=== PATIENT | male | born 1955 | race Caucasian/White ===

== ENCOUNTER 2017-04-18 18:30 | Inpatient (IN) | payer MEDICAID ==
[2017-04-18] MEDS ORDERED: NS 1,000 ML IV ONE ×4 (18:44→19:28)
--- NOTE | 2017-04-18 18:47 | EDPHY ---
H & P Time Seen by Provider: 04/18/17 18:39 HPI/ROS: CHIEF COMPLAINT: High blood sugar and short of breath HISTORY OF PRESENT ILLNESS: Patient is had insulin-dependent diabetes for 30 years. He got out of [facility] 4 days ago and has not had any insulin since. He was living in [facility] in [place] before that. He presents the emergency department with shortness of breath and elevated blood sugar. Associated with nausea and vomiting and some epigastric discomfort and reflux. No chest pain. Not coughing. No fever or chills. Feels very thirsty and dehydrated. REVIEW OF SYSTEMS: Eye: no change in vision ENT: no sore throat Cardiac: no chest pain or syncope Pulmonary: HPI Abdomen: No abdominal pain or diarrhea Musculoskeletal: no back pain Skin: no rash Neuro: no headache Constitutional: no fever : no urinary symptoms A comprehensive 10 point review of systems is otherwise negative aside from elements mentioned in the history of present illness. PAST MEDICAL HISTORY: Insulin-dependent diabetes and appendectomy Social history: Smoker, intermittent alcohol, recently in [facility]. General Appearance: Alert and conversant, cooperative. Eyes: No scleral icterus. ENT, Mouth: Very dry mucous membranes Respiratory: Tachypneic but no rales or rhonchi. Cardiovascular: Regular rate and rhythm. Tachycardic without murmur. Gastrointestinal: Abdomen is soft and non tender. Neurological: Alert and oriented x3. Normally conversant. Face symmetric, normal movement and sensation in all extremities. Skin: Warm and dry, no rashes. Musculoskeletal: No peripheral edema and no joint swelling. Psychiatric: Not agitated. Emergency Department course/MDM: Arrives by EMS with pre-hospital glucose greater than 600. Clinically appears highly likely to be diabetic ketoacidosis. 1851: Sodium 125, glucose greater than 700, potassium 5.3. Serum potassium 6.1. Insulin for DKA protocol started and ordered with 3 L IV normal saline. 10 units IV bolus, 10units/hr drip. 1950: I-STAT potassium is 4.3, continue IV fluids. Sodium noted, likely pseudo hyponatremia with severely elevated glucose. Constitutional: Initial Vital Signs Temperature (C) 36.3 C 04/18/17 18:45 Heart Rate 115 H 04/18/17 18:45 Respiratory Rate 24 H 04/18/17 18:45 Blood Pressure 198/88 H 04/18/17 18:45 O2 Sat (%) 95 04/18/17 18:45 O2 Delivery Mode Room Air Allergies/Adverse Reactions: No Known Allergies Allergy (Unverified 04/18/17 18:45) Home Medications: Medication Instructions Recorded NK [No Known Home Meds] 04/18/17 Medical Decision Making - Diagnostics EKG Interpretation: 12-lead EKG interpreted by me; official reading is in trace master. My interpretation is sinus tachycardia with borderline prolonged QT. Imaging Results: Imaging Impressions Chest X-Ray 04/18/17 18:45 Impression: 1. No active cardiopulmonary disease seen. 2. Scarring suspected right middle lobe. Chest x-ray negative. Imaging: I viewed and interpreted images myself Differential Diagnosis: Differential diagnosis considered for shortness of breath including but not limited to pulmonary infectious process, COPD, asthma, pulmonary embolus and congestive heart failure. Consult/Admit Bed Type: [place] [id number] Critical Care Time: Critical care time spent by me, Dr. Castorena, exclusively with the care of this patient was 35 minutes, exclusive of PA or [employer] time and exclusive of separate procedures. The organ system at risk was metabolic and I ordered normal saline , IV insulin bolus and drip, antiemetics, discussion with hospitalist, review of multiple diagnostic studies; to stabilize the patient and prevent worsening of the patient's condition. - Data Points Laboratory Results: Laboratory Results 04/18/17 18:30 04/18/17 18:30 04/18/17 04/18/17 04/18/17 19:00 18:41 18:40 WBC RBC Hgb POC Hgb 18.0 gm/dL H gm/dL (13.7-17.5) Hct POC Hct 53 % H % (40-51) MCV MCH MCHC RDW Plt Count MPV Neut % (Auto) Lymph % (Auto) [place] % (Auto) Eos % (Auto) Baso % (Auto) Nucleat RBC Rel Count Absolute Neuts (auto) Absolute Lymphs (auto) Absolute Monos (auto) Absolute Eos (auto) Absolute Basos (auto) Absolute Nucleated RBC Immature Gran % Immature Gran # VBG pH 7.15 L* (7.31-7.42) POC Sodium 125 mEq/L L mEq/L (134-144) Sodium POC Potassium 5.3 mEq/L H mEq/L (3.3-5.0) Potassium POC Chloride 93 mEq/L L mEq/L (97-110) Chloride Carbon Dioxide Anion Gap POC BUN 63 mg/dL H mg/dL (7-23) BUN Creatinine POC Creatinine 0.9 mg/dL mg/dL (0.7-1.3) Estimated GFR Glucose POC Glucose Pending Calcium Phosphorus Magnesium Troponin I Beta-Hydroxybutyrate Urine Color PALE YELLOW Urine Appearance CLEAR Urine pH 5.0 (5.0-7.5) Ur Specific [place] 1.023 (1.002-1.030) Urine Protein NEGATIVE (NEGATIVE) Urine Ketones 2+ H (NEGATIVE) Urine Blood 3+ H (NEGATIVE) Urine Nitrate NEGATIVE (NEGATIVE) Urine Bilirubin NEGATIVE (NEGATIVE) Urine Urobilinogen NEGATIVE EU EU (0.2-1.0) Ur Leukocyte Esterase NEGATIVE (NEGATIVE) Urine RBC 1-3 /hpf /hpf (0-3) Urine WBC 1-3 /hpf /hpf (0-3) Ur Epithelial Cells NONE SEEN /lpf /lpf (NONE-1+) Urine Mucus TRACE /lpf /lpf (NONE-1+) Urine Glucose 3+ H (NEGATIVE) 04/18/17 04/18/17 18:30 18:30 WBC 23.72 10^3/uL H 10^3/uL (3.80-9.50) RBC 5.42 10^6/uL 10^6/uL (4.40-6.38) Hgb 17.2 g/dL g/dL (13.7-17.5) POC Hgb Hct 49.6 % % (40.0-51.0) POC Hct MCV 91.5 fL fL (81.5-99.8) MCH 31.7 pg pg (27.9-34.1) MCHC 34.7 g/dL g/dL (32.4-36.7) RDW 12.5 % % (11.5-15.2) Plt Count 294 10^3/uL 10^3/uL (150-400) MPV 11.0 fL fL (8.7-11.7) Neut % (Auto) 87.6 % H % (39.3-74.2) Lymph % (Auto) 4.1 % L % (15.0-45.0) [place] % (Auto) 7.0 % % (4.5-13.0) Eos % (Auto) 0.0 % L % (0.6-7.6) Baso % (Auto) 0.2 % L % (0.3-1.7) Nucleat RBC Rel Count 0.0 % % (0.0-0.2) Absolute Neuts (auto) 20.78 10^3/uL H 10^3/uL (1.70-6.50) Absolute Lymphs (auto) 0.97 10^3/uL L 10^3/uL (1.00-3.00) Absolute Monos (auto) 1.65 10^3/uL H 10^3/uL (0.30-0.80) Absolute Eos (auto) 0.00 10^3/uL L 10^3/uL (0.03-0.40) Absolute Basos (auto) 0.05 10^3/uL 10^3/uL (0.02-0.10) Absolute Nucleated RBC 0.00 10^3/uL 10^3/uL (0-0.01) Immature Gran % 1.1 % % (0.0-1.1) Immature Gran # 0.27 10^3/uL H 10^3/uL (0.00-0.10) VBG pH POC Sodium Sodium 124 mEq/L L mEq/L (134-144) POC Potassium Potassium 6.1 mEq/L H mEq/L (3.5-5.2) POC Chloride Chloride 90 mEq/L L mEq/L (97-110) Carbon Dioxide < 5 mEq/l L* mEq/l (22-31) Anion Gap TNP POC BUN BUN 53 mg/dL H mg/dL (7-23) Creatinine 1.4 mg/dL H mg/dL (0.7-1.3) POC Creatinine Estimated GFR 52 Glucose 740 mg/dL H* mg/dL (70-100) POC Glucose Calcium 9.2 mg/dL mg/dL (8.5-10.4) Phosphorus 5.8 mg/dL H mg/dL (2.5-4.5) Magnesium 2.6 mg/dL H mg/dL (1.6-2.3) Troponin I < 0.012 ng/mL ng/mL (0-0.034) Beta-Hydroxybutyrate Pending Urine Color Urine Appearance Urine pH Ur Specific [place] Urine Protein Urine Ketones Urine Blood Urine Nitrate Urine Bilirubin Urine Urobilinogen Ur Leukocyte Esterase Urine RBC Urine WBC Ur Epithelial Cells Urine Mucus Urine Glucose Medications Given: Discontinued Medications Sodium Chloride (Ns) 1,000 mls @ 0 mls/hr IV ONCE ONE; Wide Open PRN Reason: Protocol Stop: 04/18/17 18:45 Last Admin: 04/18/17 18:52 Dose: 1,000 mls Sodium Chloride (Ns) 1,000 mls @ 0 mls/hr IV ONCE ONE; Wide Open PRN Reason: Protocol Stop: 04/18/17 18:45 Last Admin: 04/18/17 19:03 Dose: 1,000 mls Sodium Chloride (Ns) 1,000 mls @ 0 mls/hr IV ONCE ONE; Wide Open PRN Reason: Protocol Stop: 04/18/17 18:45 Last Admin: 04/18/17 19:59 Dose: 1,000 mls Sodium Chloride (Ns) 1,000 mls @ 0 mls/hr IV EDNOW ONE; Wide Open PRN Reason: Protocol Stop: 04/18/17 19:29 Last Admin: 04/18/17 19:59 Dose: 1,000 mls Insulin Human Regular (Humulin R) 10 unit IVP EDNOW ONE Stop: 04/18/17 18:51 Last Admin: 04/18/17 19:19 Dose: 10 unit Metoclopramide HCl (Reglan Injection) 10 mg IVP EDNOW ONE Stop: 04/18/17 19:03 Last Admin: 04/18/17 19:19 Dose: 10 mg Point of Care Test Results: 04/18/17 18:41 POC Sodium 125 L POC Potassium 5.3 H POC Chloride 93 L POC BUN 63 H POC Creatinine 0.9 Departure - [facility] Clinical Impression: DKA (diabetic ketoacidoses) Qualifiers: Diabetes mellitus type: type 1 Diabetes mellitus complication detail: without coma Qualified Code(s): E10.10 - Type 1 diabetes mellitus with ketoacidosis without coma Condition: Serious
[2017-04-18 18:49] LABS: % IMMATURE GRANULYOCYTES 1.1 % (0.0-1.1); ABSOLUTE IMMATURE GRANULOCYTES 0.27 10^3/uL (0.00-0.10); ADD DIFF? NO; ADD MORPH? NO; ADD SCAN? NO; ATYPICAL LYMPHOCYTE FLAG 0 (0-99); FRAGMENT RBC FLAG 0 (0-99); HEMATOCRIT 49.6 % (40.0-51.0); HEMOGLOBIN 17.2 g/dL (13.7-17.5); LEFT SHIFT FLG 20 (0-99); LIPEMIA HEMOLYSIS FLAG 90 (0-99); MEAN CELL HEMOGLOBIN 31.7 pg (27.9-34.1); MEAN CELL HEMOGLOBIN CONCENTR. 34.7 g/dL (32.4-36.7); MEAN CELL VOLUME 91.5 fL (81.5-99.8); PLATELET CLUMPS FLAG 10 (0-99); PLATELET COUNT 294 10^3/uL (150-400); RED BLOOD CELL COUNT 5.42 10^6/uL (4.40-6.38); RED CELL DISTRIBUTION WIDTH 12.5 % (11.5-15.2)
[2017-04-18] MEDS ORDERED: INSULIN REGULAR HUMAN 100 UNIT, COSIGN. REQUIRED 1 EA in NS 100 ML IV ONE (18:50)
[2017-04-18] MEDS ORDERED: INSULIN REGULAR HUMAN 100 UNIT/ML IVP ONE (18:50)
--- NOTE | 2017-04-18 18:55 | CPEKG ---
Heart Rate: 116 RR Interval: 517 P-R Interval: 148 QRSD Interval: 90 QT Interval: 344 QTC Interval: 478 P [place]: 71 QRS [place]: 42 T Wave [place]: 36 EKG Severity - BORDERLINE ECG - EKG Impression: SINUS TACHYCARDIA EKG Impression: BORDERLINE PROLONGED QT INTERVAL Electronically Signed By: Hung Castorena 18-Apr-2017 19:03:45
[2017-04-18] MEDS ORDERED: METOCLOPRAMIDE 10 MG/2 ML VIAL IVP ONE (19:02)
[2017-04-18 19:03] LABS: CALCIUM 9.2 mg/dL (8.5-10.4); CHLORIDE 90 mEq/L (97-110); CREATININE 1.4 mg/dL (0.7-1.3); GLOMERULAR FILTRATION RATE 52; MAGNESIUM 2.6 mg/dL (1.6-2.3); POTASSIUM 6.1 mEq/L (3.5-5.2); SODIUM 124 mEq/L (134-144)
[2017-04-18 19:11] LABS: CARBON DIOXIDE < 5 mEq/l (22-31)
[2017-04-18 19:13] LABS: COLOR PALE YELLOW; LEUKOCYTE ESTERASE,URINE NEGATIVE (NEGATIVE); NITRITE,URINE NEGATIVE (NEGATIVE)
[2017-04-18 19:15] LABS: TROPONIN I < 0.012 ng/mL (0-0.034)
[2017-04-18 19:17] LABS: GLUCOSE 740 mg/dL (70-100)
[2017-04-18 19:23] LABS: MUCUS TRACE /lpf (NONE-1+)
[2017-04-18 20:53] LABS: GLUCOSE 542 mg/dL (70-100)
[2017-04-18] MEDS ORDERED: ACETAMINOPHEN 325 MG TAB PO PRN (20:59)
[2017-04-18] MEDS ORDERED: ONDANSETRON DISINTEGRATING 4 MG TAB PO PRN (20:59)
[2017-04-18] MEDS ORDERED: ONDANSETRON 4 MG/2 ML VIAL IVP PRN (20:59)
[2017-04-18] MEDS ORDERED: hydrALAZINE 20 MG/ML VIAL IVP PRN (21:00)
[2017-04-18] MEDS ORDERED: INSULIN REGULAR HUMAN 100 UNIT/ML IVP PRN (21:04)
[2017-04-18] MEDS ORDERED: D50W 25 GM/50 ML SYR IVP PRN (21:04)
[2017-04-18] MEDS ORDERED: NS BOLUS 1000 ML (Wide open) IV ONE (21:30)
[2017-04-18 21:32] LABS: BASE EXCESS -21.9 mEq/L (-2.5-2.5); BICARBONATE 6 mEq/L (22-26); MEASURED OXYGEN SATURATION 96 % (92-95); PO2 99 mmHg (65-75)
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
[2017-04-18 21:34] LABS: TCO2 6 mEq/L (23-27)
[2017-04-18 21:38] LABS: PCO2 15 mmHg (34-38)
[2017-04-18] MEDS ORDERED: NS W/ 20 KCl/L 1,000 ML IV ONE (22:00)
[2017-04-18] MEDS ORDERED: PROTOCOL POTASSIUM 1 DOSE MISC PRN (22:27)
[2017-04-18] MEDS ORDERED: PROTOCOL MAGNESIUM 1 DOSE IV PRN (22:27)
[2017-04-18] MEDS: PANTOPRAZOLE SODIUM 40 MG TAB PO SCH (22:49)
[2017-04-18] MEDS: D5W 1/2 NS 1,000 ML IV PRN (23:56)
[2017-04-18] MEDS: INSULIN REGULAR HUMAN 100 UNIT in NS 100 ML IV SCH (23:58)
[2017-04-19] MEDS ORDERED: NS W/ 20 KCl/L 1,000 ML IV ONE
[2017-04-19 00:23] LABS: ANION GAP 15 mEq/L (8-16); CALCIUM 7.5 mg/dL (8.5-10.4); CARBON DIOXIDE 11 mEq/l (22-31); CHLORIDE 113 mEq/L (97-110); CREATININE 0.8 mg/dL (0.7-1.3); GLOMERULAR FILTRATION RATE > 60; GLUCOSE 220 mg/dL (70-100); POTASSIUM 4.6 mEq/L (3.5-5.2); SODIUM 139 mEq/L (134-144)
[2017-04-19] MEDS ORDERED: NS 1,000 ML IV ONE (04:00)
[2017-04-19 05:07] LABS: ANION GAP 8 mEq/L (8-16); CALCIUM 7.4 mg/dL (8.5-10.4); CARBON DIOXIDE 16 mEq/l (22-31); CHLORIDE 116 mEq/L (97-110); CHOLESTEROL 97 mg/dL (140-220); CHOLESTEROL/HDL RATIO 4.62 RATIO (1.00-4.97); CREATININE 0.7 mg/dL (0.7-1.3); GLOMERULAR FILTRATION RATE > 60; GLUCOSE 52 mg/dL (70-100); HIGH DENSITY LIPOPROTEIN 21 mg/dL (40-65); LOW DENSITY LIPOPROTEIN 61 mg/dL (80-100); NON-HIGH DENSITY LIPOPROTEIN 76 mg/dL (90-129); POTASSIUM 3.4 mEq/L (3.5-5.2); SODIUM 140 mEq/L (134-144); TRIGLYCERIDE 79 mg/dL (40-150); VERY LOW DENSITY LIPOPROTEINS 15 mg/dL (8-25)
[2017-04-19] MEDS: D5W 1/2 NS 1,000 ML IV PRN (05:21)
[2017-04-19] MEDS: POTASSIUM Cl (KCl) 100 ML IV SCH ×6 (05:24→22:32)
[2017-04-19] MEDS: INSULIN REGULAR HUMAN 100 UNIT in NS 100 ML IV SCH (06:18)
[2017-04-19] MEDS ORDERED: 1/2 NS 1,000 ML IV SCH (08:00)
[2017-04-19 08:32] LABS: ANION GAP 8 mEq/L (8-16); CALCIUM 7.2 mg/dL (8.5-10.4); CARBON DIOXIDE 16 mEq/l (22-31); CHLORIDE 115 mEq/L (97-110); CREATININE 0.6 mg/dL (0.7-1.3); GLOMERULAR FILTRATION RATE > 60; GLUCOSE 75 mg/dL (70-100); SODIUM 139 mEq/L (134-144)
[2017-04-19] MEDS: PANTOPRAZOLE SODIUM 40 MG TAB PO SCH (09:53)
--- NOTE | 2017-04-19 11:13 | HOSPPROG ---
Hospitalist Progress Note Assessment/Plan: #DKA: gap closed. HCO3 still low. Cont insulin gtt, D5NS, transition to glargine if improved this afternoon #Atypical cough: productive cough. Check CXR, sputum culture #Social situation: recently out of detention, currently homeless. Schedule appt at [facility] #Leukocytosis: dehydration vs. PNA. Check CXR. Treat for CAP empirically, check procalcitonin. #Metabolic acidosis: due to DKA, dehydration. IVFs. Serial BMP #GERD: PPI #Diet: diabetic #DVT: Lovenox Subjective: cough with brown sputum. No fever, chills or weight loss Objective: Vital Signs Temp Pulse Resp BP Pulse Ox 37.2 C 84 25 H 134/64 H 95 04/19/17 04:00 04/19/17 10:00 04/19/17 10:00 04/19/17 10:00 04/19/17 10:00 Laboratory Results 04/19/17 08:00 04/18/17 04/19/17 04/20/17 05:59 05:59 05:59 Intake Total 6690 Output Total 1670 Balance 5020 - Physical Exam Constitutional: no apparent distress Eyes: PERRL Ears, Nose, Mouth, Throat: moist mucous membranes, hearing normal Cardiovascular: regular rate and rhythym, no murmur, rub, or gallop Respiratory: no respiratory distress, no rales or rhonchi, other (brown sputum) Gastrointestinal: normoactive bowel sounds, soft, non-tender abdomen Genitourinary: no bladder fullness Skin: warm Musculoskeletal: full muscle strength, no muscle tenderness Neurologic: AAOx3, CN II-XII Intact Psychiatric: interacting appropriately ICD10 Worksheet Patient Problems: Problems Problem Status Onset DKA (diabetic ketoacidoses) Acute
[2017-04-19 12:21] LABS: ANION GAP 8 mEq/L (8-16); CARBON DIOXIDE 15 mEq/l (22-31); CHLORIDE 115 mEq/L (97-110); CREATININE 0.6 mg/dL (0.7-1.3); GLOMERULAR FILTRATION RATE > 60; GLUCOSE 157 mg/dL (70-100); POTASSIUM 3.8 mEq/L (3.5-5.2); SODIUM 138 mEq/L (134-144)
[2017-04-19] MEDS: ENOXAPARIN 40 MG/0.4 ML SYR SC SCH (12:38)
[2017-04-19] MEDS: D5W 1/2 NS 1,000 ML IV SCH (15:30)
[2017-04-19 16:41] LABS: HEMATOCRIT 37.4 % (40.0-51.0); HEMOGLOBIN 13.6 g/dL (13.7-17.5); MEAN CELL HEMOGLOBIN 32.1 pg (27.9-34.1); MEAN CELL HEMOGLOBIN CONCENTR. 36.4 g/dL (32.4-36.7); MEAN CELL VOLUME 88.2 fL (81.5-99.8); RED BLOOD CELL COUNT 4.24 10^6/uL (4.40-6.38); RED CELL DISTRIBUTION WIDTH 12.5 % (11.5-15.2)
[2017-04-19 17:02] LABS: ALANINE AMINOTRANSFERASE 83 IU/L (21-72); ALBUMIN 2.4 g/dL (3.5-5.0); ALKALINE PHOSPHATASE 69 IU/L (38-126); ANION GAP 8 mEq/L (8-16); ASPARTATE AMINOTRANSFERASE 56 IU/L (17-59); BILIRUBIN,TOTAL 0.9 mg/dL (0.1-1.4); BILIRUBIN-CONJUGATED 0.4 mg/dL (0.0-0.5); BILIRUBIN-UNCONJUGATED 0.5 mg/dL (0.0-1.1); CALCIUM 7.2 mg/dL (8.5-10.4); CARBON DIOXIDE 14 mEq/l (22-31); CHLORIDE 113 mEq/L (97-110); CREATININE 0.6 mg/dL (0.7-1.3); GLOMERULAR FILTRATION RATE > 60; GLUCOSE 244 mg/dL (70-100); POTASSIUM 4.1 mEq/L (3.5-5.2); SODIUM 135 mEq/L (134-144); TOTAL PROTEIN 5.1 g/dL (6.3-8.2)
[2017-04-19] MEDS: AZITHROMYCIN 250 MG TAB PO SCH (17:02)
[2017-04-19] MEDS ORDERED: D50W 25 GM/50 ML SYR IVP PRN (18:04)
[2017-04-19] MEDS ORDERED: INSULIN GLARGINE 100 UNIT/ML VIAL SC ONE (18:15)
[2017-04-19] MEDS ORDERED: INSULIN GLARGINE 100 UNITS/ML SYRINGE SC ONE (18:15)
[2017-04-19] MEDS ORDERED: D10W 250 ML PRN HYPOGLYCEMIA IV (18:30)
[2017-04-19] MEDS: INSULIN REGULAR HUMAN 100 UNIT/ML SC SCH (20:03)
[2017-04-19 21:09] LABS: ANION GAP 6 mEq/L (8-16); CALCIUM 6.8 mg/dL (8.5-10.4); CARBON DIOXIDE 15 mEq/l (22-31); CHLORIDE 115 mEq/L (97-110); CREATININE 0.6 mg/dL (0.7-1.3); GLOMERULAR FILTRATION RATE > 60; GLUCOSE 127 mg/dL (70-100); POTASSIUM 3.8 mEq/L (3.5-5.2); SODIUM 136 mEq/L (134-144)
[2017-04-19] MEDS ORDERED: PROTOCOL POTASSIUM 1 DOSE MISC PRN (21:26)
[2017-04-19] MEDS ORDERED: POTASSIUM CL 10 MEQ TAB PO ONE (21:31)
[2017-04-19] MEDS ORDERED: CALCIUM GLUCONATE 50 ML IV ONE (21:45)
[2017-04-19] MEDS ORDERED: PROTOCOL CALCIUM 1 DOSE IV PRN (21:47)
[2017-04-19] MEDS ORDERED: PROTOCOL K PHOSPHATE 1 DOSE IV PRN (21:47)
[2017-04-19] MEDS: POTASSIUM/SODIUM PHOSPHATE 1 PKT PO SCH (22:31)
[2017-04-19] MEDS ORDERED: K PHOS 20 MMOL in D5W 250 ML IV ONE (23:00)
[2017-04-20] MEDS: POTASSIUM Cl (KCl) 100 ML IV SCH (00:04)
[2017-04-20 01:51] LABS: ANION GAP 7 mEq/L (8-16); CALCIUM 7.2 mg/dL (8.5-10.4); CARBON DIOXIDE 14 mEq/l (22-31); CHLORIDE 113 mEq/L (97-110); CREATININE 0.6 mg/dL (0.7-1.3); GLOMERULAR FILTRATION RATE > 60; GLUCOSE 279 mg/dL (70-100); POTASSIUM 4.8 mEq/L (3.5-5.2); SODIUM 134 mEq/L (134-144)
[2017-04-20] MEDS: D5W 1/2 NS 1,000 ML IV SCH ×3 (02:05→09:20)
[2017-04-20 04:42] LABS: IONIZED CALCIUM 1.04 MMOL/L (1.12-1.30)
[2017-04-20 04:45] LABS: HEMATOCRIT 33.9 % (40.0-51.0); HEMOGLOBIN 12.1 g/dL (13.7-17.5); MEAN CELL HEMOGLOBIN 31.7 pg (27.9-34.1); MEAN CELL HEMOGLOBIN CONCENTR. 35.7 g/dL (32.4-36.7); MEAN CELL VOLUME 88.7 fL (81.5-99.8); RED BLOOD CELL COUNT 3.82 10^6/uL (4.40-6.38); RED CELL DISTRIBUTION WIDTH 12.7 % (11.5-15.2)
[2017-04-20 05:33] LABS: ANION GAP 10 mEq/L (8-16); CARBON DIOXIDE 15 mEq/l (22-31); CHLORIDE 112 mEq/L (97-110); CREATININE 0.6 mg/dL (0.7-1.3); GLOMERULAR FILTRATION RATE > 60; GLUCOSE 291 mg/dL (70-100); MAGNESIUM 1.8 mg/dL (1.6-2.3); POTASSIUM 4.4 mEq/L (3.5-5.2); SODIUM 137 mEq/L (134-144)
[2017-04-20] MEDS ORDERED: CALCIUM GLUCONATE 50 ML IV ONE (05:49)
[2017-04-20] MEDS ORDERED: MAGNESIUM SULF 1 GM/DEXTROSE 100 ML IV ONE (05:59)
[2017-04-20] MEDS: INSULIN REGULAR HUMAN 100 UNIT/ML SC SCH ×4 (06:04→22:18)
[2017-04-20] MEDS ORDERED: K PHOS 15 MMOL in D5W 250 ML IV ONE (07:00)
[2017-04-20] MEDS: INSULIN GLARGINE 100 UNITS/ML SYRINGE SC SCH (09:20)
[2017-04-20] MEDS: ENOXAPARIN 40 MG/0.4 ML SYR SC SCH (09:20)
[2017-04-20 09:48] LABS: ANION GAP 8 mEq/L (8-16); CARBON DIOXIDE 16 mEq/l (22-31); CHLORIDE 112 mEq/L (97-110); CREATININE 0.5 mg/dL (0.7-1.3); GLOMERULAR FILTRATION RATE > 60; GLUCOSE 295 mg/dL (70-100); POTASSIUM 3.8 mEq/L (3.5-5.2); SODIUM 136 mEq/L (134-144)
[2017-04-20] MEDS ORDERED: POTASSIUM Cl (KCl) 100 ML IV SCH (10:18)
[2017-04-20] MEDS ORDERED: NS 1,000 ML IV SCH (10:45)
[2017-04-20] MEDS: POTASSIUM/SODIUM PHOSPHATE 1 PKT PO SCH ×2 (10:53→22:27)
[2017-04-20] MEDS: AZITHROMYCIN 250 MG TAB PO SCH (10:53)
[2017-04-20] MEDS: PANTOPRAZOLE SODIUM 40 MG TAB PO SCH (10:53)
[2017-04-20] MEDS: AZITHROMYCIN IV 500 MG in D5W 250 ML IV SCH (11:39)
[2017-04-20] MEDS: BACLOFEN 10 MG TAB PO PRN ×2 (13:12→19:32)
[2017-04-20 13:49] LABS: ANION GAP 5 mEq/L (8-16); CALCIUM 7.1 mg/dL (8.5-10.4); CARBON DIOXIDE 19 mEq/l (22-31); CHLORIDE 111 mEq/L (97-110); CREATININE 0.5 mg/dL (0.7-1.3); GLOMERULAR FILTRATION RATE > 60; GLUCOSE 263 mg/dL (70-100); POTASSIUM 3.7 mEq/L (3.5-5.2); SODIUM 135 mEq/L (134-144)
--- NOTE | 2017-04-20 15:21 | HOSPPROG ---
Hospitalist Progress Note Assessment/Plan: #DKA: gap closed. HCO3 19. Glargine 30 units, may need uptitration and close FU with [facility] #Aspiration vs. CAP: CTX, Azithro. Dysphagia with pills. Esophogram, video swallow pending. Strep/Legionella pending #Leukocytosis: resolved. PNA, +/- dehydration #Metabolic acidosis: improved #Dysphagia: suspect due to refractory GERD. Swallow studies pending. PPI #Social issues: recently discharge from [facility], homeless. #DVT ppx: Lovenox #Diet: diabetic, dysphagia Disp: cont inpt admission with uncontrolled glucose, PNA. Cont IV abx, insulin # Subjective: pills get stuck in chest. No SOB Objective: Vital Signs Temp Pulse Resp BP Pulse Ox 36.8 C 71 18 116/69 96 04/20/17 14:00 04/20/17 14:00 04/20/17 12:00 04/20/17 12:00 04/20/17 12:00 Laboratory Results 04/20/17 04:20 04/20/17 13:05 04/19/17 04/20/17 04/21/17 05:59 05:59 05:59 Intake Total 6690 7367 Output Total 1670 2625 Balance 5020 4742 - Physical Exam Constitutional: no apparent distress Eyes: PERRL Ears, Nose, Mouth, Throat: moist mucous membranes, hearing normal Cardiovascular: regular rate and rhythym, no murmur, rub, or gallop Respiratory: other (crackles left base) Gastrointestinal: normoactive bowel sounds, soft, non-tender abdomen Genitourinary: no bladder fullness Skin: warm Musculoskeletal: full muscle strength Neurologic: AAOx3, CN II-XII Intact Psychiatric: interacting appropriately ICD10 Worksheet Patient Problems: Problems Problem Status Onset DKA (diabetic ketoacidoses) Acute
[2017-04-20 19:06] LABS: POTASSIUM 3.4 mEq/L (3.5-5.2)
[2017-04-20] MEDS ORDERED: POTASSIUM CL 10 MEQ TAB PO ONE ×2 (19:58→22:30)
[2017-04-21] MEDS ORDERED: PNEUMOCOCCAL 0.5ML VACCINE VIAL IM ONE (03:30)
[2017-04-21 03:31] LABS: HEMATOCRIT 36.7 % (40.0-51.0); MEAN CELL HEMOGLOBIN 31.3 pg (27.9-34.1); MEAN CELL HEMOGLOBIN CONCENTR. 35.4 g/dL (32.4-36.7); MEAN CELL VOLUME 88.2 fL (81.5-99.8); RED BLOOD CELL COUNT 4.16 10^6/uL (4.40-6.38); RED CELL DISTRIBUTION WIDTH 12.5 % (11.5-15.2)
[2017-04-21 03:38] LABS: IONIZED CALCIUM 1.03 MMOL/L (1.12-1.30)
[2017-04-21 03:53] LABS: ANION GAP 8 mEq/L (8-16); CALCIUM 7.3 mg/dL (8.5-10.4); CARBON DIOXIDE 19 mEq/l (22-31); CHLORIDE 113 mEq/L (97-110); CREATININE 0.5 mg/dL (0.7-1.3); GLOMERULAR FILTRATION RATE > 60; GLUCOSE 211 mg/dL (70-100); MAGNESIUM 1.9 mg/dL (1.6-2.3); POTASSIUM 3.7 mEq/L (3.5-5.2); SODIUM 140 mEq/L (134-144)
[2017-04-21] MEDS ORDERED: POTASSIUM CL 10 MEQ TAB PO ONE (07:31)
[2017-04-21] MEDS: INSULIN GLARGINE 100 UNITS/ML SYRINGE SC SCH (08:21)
[2017-04-21] MEDS: PANTOPRAZOLE SODIUM 40 MG TAB PO SCH (08:22)
[2017-04-21] MEDS: ENOXAPARIN 40 MG/0.4 ML SYR SC SCH (08:22)
[2017-04-21] MEDS: INSULIN REGULAR HUMAN 100 UNIT/ML SC SCH ×4 (08:22→20:48)
[2017-04-21] MEDS: AZITHROMYCIN IV 500 MG in D5W 250 ML IV SCH (08:23)
[2017-04-21] MEDS: POTASSIUM/SODIUM PHOSPHATE 1 PKT PO SCH (08:23)
[2017-04-21] MEDS ORDERED: K PHOS 10 MMOL in D5W 250 ML IV ONE (12:00)
--- NOTE | 2017-04-21 13:09 | HOSPPROG ---
Hospitalist Progress Note Assessment/Plan: 61 yo M a/w dks, aspiration pneumonia DKA: gap closed. HCO3 19. Increase Glargine to 36 units, Aspiration vs. CAP: CTX, Azithro. Dysphagia with pills. Esophogram, video swallow neg for aspiration but I suspect acute event in setting of vomiting Leukocytosis: resolved. PNA, +/- dehydration Metabolic acidosis: improved Dysphagia: suspect due to refractory GERD. Swallow studies pending. PPI Social issues: recently discharge from senior living, homeless. DVT ppx: Lovenox Diet: diabetic, dysphagia Disp: cont inpt admission with uncontrolled glucose, PNA. Cont IV abx, insulin Subjective: cxr w b/l airspace disease (interp by me) Objective: Vital Signs Temp Pulse Resp BP Pulse Ox 36.7 C 72 16 146/69 H 95 04/21/17 07:41 04/21/17 07:41 04/21/17 07:41 04/21/17 07:41 04/21/17 07:41 Microbiology 04/20/17 09:34 - Final Sputum, Expectorated Laboratory Results 04/21/17 03:25 04/21/17 03:25 04/20/17 04/21/17 04/22/17 05:59 05:59 05:59 Intake Total 7328 4092 Output Total 2625 800 Balance 4742 3292 - Physical Exam Constitutional: no apparent distress, appears nourished Eyes: PERRL, anicteric sclera Ears, Nose, Mouth, Throat: moist mucous membranes, hearing normal Cardiovascular: regular rate and rhythym, no murmur, rub, or gallop Respiratory: no respiratory distress, rhonchi, No no rales or rhonchi Gastrointestinal: normoactive bowel sounds, soft, non-tender abdomen Genitourinary: no bladder fullness, No muñoz in urethra Skin: warm, normal color Musculoskeletal: full muscle strength, no muscle tenderness Neurologic: AAOx3 ICD10 Worksheet Patient Problems: Problems Problem Status Onset DKA (diabetic ketoacidoses) Acute
[2017-04-21 22:48] VITALS: O2SAT 95
[2017-04-22 05:38] LABS: MAGNESIUM 1.9 mg/dL (1.6-2.3); POTASSIUM 3.6 mEq/L (3.5-5.2)
[2017-04-22] MEDS ORDERED: POTASSIUM CL 10 MEQ TAB PO ONE (07:25)
[2017-04-22] MEDS: INSULIN GLARGINE 100 UNITS/ML SYRINGE SC SCH (08:58)
[2017-04-22] MEDS: ENOXAPARIN 40 MG/0.4 ML SYR SC SCH (09:02)
[2017-04-22] MEDS: PANTOPRAZOLE SODIUM 40 MG TAB PO SCH (09:08)
[2017-04-22] MEDS: INSULIN REGULAR HUMAN 100 UNIT/ML SC SCH ×2 (09:11→12:12)
[2017-04-22] MEDS: AZITHROMYCIN IV 500 MG in D5W 250 ML IV SCH (09:19)
--- NOTE | 2017-04-22 10:58 | HOSPPROG ---
Hospitalist Progress Note Assessment/Plan: 61 yo M a/w dks, aspiration pneumonia DKA: gap closed. HCO3 19. Increase Glargine to 36 units, Aspiration vs. CAP: CTX, Azithro. Dysphagia with pills. Esophogram, video swallow neg for aspiration but I suspect acute event in setting of vomiting Leukocytosis: resolved. PNA, +/- dehydration Metabolic acidosis: improved Dysphagia: suspect due to refractory GERD. Swallow studies pending. PPI Social issues: [facility], homeless. DVT ppx: Lovenox Diet: diabetic, dysphagia Disp: home today > 30 minutes on dc Subjective: feels well. ready for dc Objective: Vital Signs Temp Pulse Resp BP Pulse Ox 36.9 C 69 16 145/87 H 95 04/21/17 22:47 04/21/17 22:47 04/21/17 22:47 04/21/17 22:47 04/21/17 22:47 Microbiology 04/20/17 09:34 - Final Sputum, Expectorated Laboratory Results 04/21/17 03:25 04/22/17 04:56 04/21/17 04/22/17 04/23/17 05:59 05:59 05:59 Intake Total 4092 500 Output Total 800 Balance 3292 500 - Physical Exam Constitutional: no apparent distress, appears nourished Eyes: PERRL, anicteric sclera Ears, Nose, Mouth, Throat: moist mucous membranes, hearing normal Cardiovascular: regular rate and rhythym, no murmur, rub, or gallop Respiratory: no respiratory distress, no rales or rhonchi Gastrointestinal: normoactive bowel sounds, soft, non-tender abdomen Genitourinary: no bladder fullness, No muñoz in urethra Skin: warm Musculoskeletal: full muscle strength Neurologic: AAOx3 ICD10 Worksheet Patient Problems: Problems Problem Status Onset DKA (diabetic ketoacidoses) Acute
[2017-04-22 11:23] VITALS: BP 134/80; PULSE 88; RESP 14; TEMP 98.7
--- NOTE | 2017-04-22 11:30 | GDS ---
[f rep st] DISCHARGE SUMMARY DISCHARGE DIAGNOSES: 1. Diabetic ketoacidosis. 2. Type 1 diabetes. 3. Community-acquired pneumonia. Please see admission history and physical by Dr. Gabriela Gerardo. The patient presented on the evening o f the 18 of April with shortness of breath and high blood sugar. He had difficult access to insuli n secondary to recently being out of halfway. The patient had an insulin drip. His gap closed. He was found to have an infiltrate and started on ceftriaxone and azithromycin. The patient had a video swallow that showed no evidence of aspiration. He had a normal esophagram. He was discharged home to complete a course of Augmentin as well as with Lantus, lispro, test strip s and Protonix. /[id number]/MODL
[2017-04-22 12:47] LABS: POTASSIUM 4.1 mEq/L (3.5-5.2)
== END 2017-04-22 14:00 | disposition home or self-care (01) | DRG 637 ==
LOC: EDUNIT# → F2N 20:44 → F3E 04-21 14:13
PROVIDERS: ADMIT Internal Medicine; ATTEND Internal Medicine
DX: E10.10 Type 1 diabetes mellitus with ketoacidosis without coma (principal); J18.8 Other pneumonia, unspecified organism; K21.9 Gastro-esophageal reflux disease without esophagitis; Z79.4 Long term (current) use of insulin; Z23 Encounter for immunization; Z59.0 Homelessness
CPT/HCPCS: 82947-QW; 87449-90; 92526-GN; 92610-GN; 92611-GN; 96374; G0009; J0456; J0610; J0696; J1650; J1815; J2765; J3475